=== PATIENT | female | born 1950 | race Caucasian/White ===

== ENCOUNTER → 2016-10-15 | Outpatient (CLI) | payer OTHER ==
[~2016-10-15] MED LIST: ADVAIR 2501 DISK W/D PO; ALBUTEROL17 GM INH; ALDACTONE; ALDACTONE PO; ASPIRIN PO; ASPIRINEC; ATIVAN PO; ATROVENT HFA12.9 GM; DILANTIN; DILANTIN PO; DUONEB 2.5-0.5 M3 ML; FIORICET 50-321 EACH PO; FIORINAL CAPSUL1 CAP PO; FLEXERIL10 MG PO; FLOVENT HFA12 GM; IMDUR; KEPPRA500 M1 PO; KEPPRA750 MG PO; LASIX PO; LIPITOR; LIPITOR PO; LORTAB 5/500 TA1 TA1 PO; NAPROSYN500 MG PO; PHENERGAN; PHENERGAN PO; PLAVIX; PLAVIX PO; PRILOSEC PO; PROZAC; PROZAC PO; REPREXAIN 7.5-21 TAB PO; SEROQUEL PO; SYNTHROID; SYNTHROID PO; TOPROL XL 50 MG50 MG PO; TOPROL XL PO; VITAMIN D50000 UNIT PO; ZONEGRAN100 MG; ZONEGRAN100 MG PO; [UNRECOGNIZED DRUG - OTHER]
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
== END | disposition home or self-care (01) ==
LOC: CMRI 09:17
DX: G95.89 Other specified diseases of spinal cord (principal); M50.023 Cervical disc disorder at C6-C7 level with myelopathy; M50.021 Cervical disc disorder at C4-C5 level with myelopathy; M47.12 Other spondylosis with myelopathy, cervical region; M48.02 Spinal stenosis, cervical region; M25.78 Osteophyte, vertebrae
CPT/HCPCS: 72141

== ENCOUNTER → 2016-10-15 | Outpatient (CLI) | payer OTHER ==
--- NOTE | ~2016-10-15 | MY11 ---
[facility] A Service of [facility] RADIOLOGY TEXT RESULTS PATIENT: KESHAV ORTIZ LOCATION: [facility] : 52 UNIT #: [id number] AGE: [address]: Christie Quiroz MD SEX: F ORDER DR: [id number] [facility] [address] [place], [place] [address] [id number] O MR#: [id number] Acc #: [id number] NAME: KESHAV ORTIZ : 1950 SEX: F STUDY DATE/TIME: 10/15/2016 11:26 UNIT: [facility] ROOM: STUDY DESCRIPTION: MY Mammogram Screening Dig [place] Attending Physician: Christie Quiroz M.D. Ordering Physician: Christie Quiroz M.D. Primary Care Physician: Christie Quiroz M.D. MEDICAL IMAGING REPORT This report is preliminary unless electronic signature is present EXAM Bilateral digital screening mammogram with CAD 10/15/2016 INDICATIONS 66-year-old female for routine screening. No reported problems and no personal history of breast cancer. Family history positive in the patient's sister. No surgeries. TECHNIQUE CC and MLO views of breast were obtained reviewed with an approved CAD device. COMPARISON 08/15/2015, 07/09/2014, 06/07/2013. FINDINGS Breast parenchyma is predominately fatty replaced. There is no new dominant nodule or mass in either breast. No new suspicious cluster of microcalcifications. Benign calcifications are present. Faint benign-appearing nodularity in the left breast is stable. IMPRESSION Benign screening mammogram; 1-year followup recommended Patients over the age of 40 are entered into a reminder system with target due date for the next mammogram. A result letter will also be sent to the patient. BIRADS: 2 Benign finding. Dictated by... Martinez Nathan M.D. [facility] A Service [facility] RADIOLOGY TEXT RESULTS PATIENT: KESHAV ORTIZ LOCATION: [facility] : 52 UNIT #: [id number] AGE: [address]: Christie Quiroz MD SEX: F ORDER DR: THIS IS AN ELECTRONICALLY VERIFIED REPORT Martinez Nathan M.D. at 10/18/2016 7:31 AM [place] TD: 10/15/2016 18:52 JOB #: [id number] MEDICAL IMAGING REPORT Page 1 of 1 COPY
== END | disposition home or self-care (01) ==
LOC: CWCC 10:51
DX: Z12.31 Encounter for screening mammogram for malignant neoplasm of breast (principal); Z80.3 Family history of malignant neoplasm of breast
CPT/HCPCS: G0202